=== PATIENT | male | born 1980 | race Hispanic/Latino ===

== ENCOUNTER 2024-08-29 15:17 | Emergency (ER) | payer SELFPAY ==
[2024-08-29] MEDS ORDERED: NA CHLORIDE 0.9% 1,000 ML ONE ×2 (15:44→18:11)
[2024-08-29] MEDS ORDERED: KETOROLAC 30 MG/ML INJ ONE (15:44)
[2024-08-29 15:56] LABS: Absolute Basophils 0.1 K/uL (0-0.5); Absolute Eosinophils 0.1 K/uL (0-0.5); Absolute Lymphocytes (CBC) 2.2 K/uL (0.7-4.9); Absolute Monocytes 0.9 K/uL (0.1-1.3); Absolute Neutrophil 9.6 K/uL (1.8-8.0); Basophils % 0.6 % (0-1.3); Eosinophils % 0.5 % (0-4.4); Hematocrit 46.2 % (39.6-49.0); Hemoglobin 15.4 g/dL (13.6-17.9); Lymphocytes % 17.3 % (15.3-44.8); MCH 30.6 pg (27.0-35.0); MCHC 33.3 g/dL (32.0-36.0); MCV 92.1 fL (80-100); MPV 7.6 fL (7.6-11.3); Monocytes % 6.9 % (3.3-12.3); Neutrophils % 74.7 % (41.7-73.7); Platelets 463 thou/uL (152-406); RBC Red Blood Cell Count 5.02 M/uL (4.33-5.43); Red Cell Distribution Width 13.2 % (12.1-15.2)
[2024-08-29 16:21] LABS: Albumin 4.6 g/dL (3.4-5.0); Albumin/Globulin Ratio 1.2 (1.1-1.8); Bilirubin Total 0.5 mg/dL (0.2-1.0); Globulin 3.9 g/dL (2.3-3.5); Protein, Total 8.5 g/dL (6.4-8.2)
[2024-08-29 17:55] LABS: Specific Gravity 1.021 (1.005-1.030); Sqamous Epithelial <5 /HPF (None Seen); Urine Bacteria <20 /HPF (<20); Urine Bilirubin NEGATIVE (Negative); Urine Blood Negative (Negative); Urine Clarity Extremely Turbid (Clear); Urine Color Yellow (Yellow); Urine Culture Reflex Order NOT NEEDED; Urine Glucose NEGATIVE (Negative); Urine Ketones TRACE (Negative); Urine Microscopic Reflex YN ORDER UMIC; Urine Mucus Slight /HPF (None Seen); Urine Nitrite NEGATIVE (Negative); Urine Protein 1+ (Negative); Urine RBC <5 /HPF (None Seen); Urine Urobilinogen Normal (Normal); Urine WBC <5 /HPF (<5)
[2024-08-29 18:05] LABS: Barbiturates NEGATIVE (NEGATIVE); Benzodiazepines NEGATIVE (NEGATIVE); Cocaine NEGATIVE (NEGATIVE); METHAMPHETAM POSITIVE (NEGATIVE); Methadone NEGATIVE (NEGATIVE); Opiates NEGATIVE (NEGATIVE); Phencyclidine NEGATIVE (NEGATIVE); THC Cannibis NEGATIVE (NEGATIVE)
--- NOTE | 2024-08-29 18:16 | RAD REPORT ---
EXAMINATION: CT ABDOMEN AND PELVIS WITHOUT CONTRAST CLINICAL INDICATION: Abdominal pain TECHNIQUE: CT abdomen and pelvis was performed, as per department protocol. IV contrast and oral was not administered.Axial, sagittal and coronal reconstructions were obtained. One or more of the following dose reduction techniques were used: Automated exposure control, adjustment of the mA and/o r kV according to the patient size, and/or iterative reconstruction. Unless otherwise specified, incidental findings do not require dedicated imaging follow-up. [id number]. COMPARISON: No prior exam. FINDINGS: The lack of intravenous and oral contrast limits evaluation of solid organs, vessels and bowel. The liver, spleen, pancreas, adrenals and kidneys appear grossly normal No evidence of diverticulitis Normal appendix. Small right inguinal hernia contains fat. Moderate umbilical hernia contains fat. Hernia sac 6.2 cm. The neck measures 2 cm. There is mild stra nding in the fat IMPRESSION: Moderate umbilical hernia. Stranding within the herniated fat may indicate strangulation
[2024-08-29] MEDS ORDERED: FENTANYL CITR 100 MCG/2 ML ONE (18:22)
--- NOTE | 2024-08-29 18:48 | ER ---
Nurse's Notes [facility] Name: Saturnino Padgett Age: 44 yrs Sex: Male : 1980 Arrival Date: 08/29/2024 Time: 15:17 Bed 16 Private MD: Diagnosis: Umbilical hernia without obstruction or gangrene Presentation: 08/29 15:25 Chief complaint: EMS states: hernia to lower abdomen grew larger and became extremely rs5 painful while working outside. 15:25 Coronavirus screen: At this time, the client does not indicate any symptoms associated rs5 with coronavirus-19. Ebola Screen: No symptoms or risks identified at this time. Initial Sepsis Screen: Does the patient meet any 2 criteria? HR > 90 bpm. Yes Does the patient have a suspected source of infection? No. Patient's initial sepsis screen is negative. Risk Assessment: Do you want to hurt yourself or someone else? Patient reports no desire to harm self or others. Onset of symptoms was August 29, 2024. 15:25 Method Of Arrival: EMS: [facility] rs5 15:25 Acuity: LEDA 3 rs5 Historical: - Allergies: 15:30 No Known Allergies; rs5 - PMHx: 15:30 Bipolar disorder; Hypertensive disorder; Kidney disease; rs5 - PSHx: 15:30 None; rs5 - Immunization history:: Adult Immunizations up to date. - Infectious Disease History:: Denies. - Social history:: Smoking status: Patient denies any tobacco usage or history of. Screenin:25 [facility] ED Fall Risk Assessment (Adult) History of falling in the last 3 months, rs5 including since admission No falls in past 3 months (0 pts) Confusion or Disorientation No (0 pts) Intoxicated or Sedated No (0 pts) Impaired Gait No (0 pts) Mobility Assist Device Used No (0 pt) Altered Elimination No (0 pt) Score/Fall Risk Level 0 - 2 = Low Risk Oriented to surroundings, Maintained a safe environment. Abuse screen: Denies threats or abuse. Nutritional screening: No deficits noted. Tuberculosis screening: No symptoms or risk factors identified. Assessment: 15:25 General: Appears in no apparent distress. uncomfortable, Behavior is calm, cooperative. rs5 Pain: Complains of pain in abdomen Pain currently is 6 out of 10 on a pain scale. Quality of pain is described as aching, Is continuous. Neuro: Level of Consciousness is awake, alert, obeys commands, Oriented to person, place, time, situation. Cardiovascular: Patient's skin is warm and dry. Respiratory: Airway is patent Respiratory effort is even, unlabored, Respiratory pattern is regular, symmetrical. GI: Abdomen is round non-distended, Abd is soft and non tender X 4 quads. : No signs and/or symptoms were reported regarding the genitourinary system. EENT: No signs and/or symptoms were reported regarding the EENT system. Derm: Skin is intact, Skin is pink, warm \T\ dry. Musculoskeletal: Range of motion: intact in all extremities. 16:38 Reassessment: Patient and/or family updated on plan of care and expected duration. Pain rs5 level reassessed. Patient is alert, oriented x 3, equal unlabored respirations, skin warm/dry/pink. 18:01 Reassessment: Patient and/or family updated on plan of care and expected duration. Pain rs5 level reassessed. Patient is alert, oriented x 3, equal unlabored respirations, skin warm/dry/pink. 18:58 Reassessment: Patient and/or family updated on plan of care and expected duration. Pain rs5 level reassessed. Patient is alert, oriented x 3, equal unlabored respirations, skin warm/dry/pink. Vital Signs: 15:25 BP 123 / 79; Pulse 109; Resp 17; Temp 98(O); Pulse Ox 99% on R/A; rs5 16:01 BP 122 / 79; Pulse 80; Resp 17; Pulse Ox 99% on R/A; rs5 18:17 BP 125 / 74; Pulse 101; Resp 17; Pulse Ox 99% on R/A; rs5 18:58 BP 130 / 77; Pulse 79; Resp 16; Pulse Ox 99% on R/A; rs5 19:22 BP 126 / 78; Pulse 75; Resp 16; Temp 98; Pulse Ox 100% on R/A; kj2 ED Course: 15:23 Patient arrived in ED. sb4 15:24 Debbie Jenkins PA-C is [facility]. sb4 15:24 Kenneth Sandoval MD is Attending Physician. sb4 15:25 Patient has correct armband on for positive identification. Placed in gown. Bed in low rs5 position. Call light in reach. Side rails up X2. 15:28 Kenny Cuenca, DALTON is Primary Nurse. rs5 15:30 Triage completed. rs5 15:30 No provider procedures requiring assistance completed. Inserted saline lock: 20 gauge rs5 in left antecubital area, using aseptic technique. Blood collected. Flushed with 10 mL NS. 18:03 CT Abd/Pelvis - Without Contrast In Process Unspecified. EDMS 18:48 Ata Faulkner MD is Referral Physician. sb4 19:05 Report received from DALTON Cox. kj2 19:21 Patient abdominal binder per MD order. kj2 19:21 Provided Education on: abdominal binder. kj2 19:21 IV discontinued, intact, bleeding controlled, No redness/swelling at site. Pressure kj2 dressing applied. Administered Medications: 15:52 Drug: NS 0.9% IV 1000 ml IV at 1 bolus Per protocol; to be given as a bolus over 60 rs5 minutes Route: IV; Rate: 1 bolus; Site: left antecubital; 15:52 Drug: Ketorolac IVP 15 mg IVP once Route: IVP; Site: left antecubital; rs5 16:10 Follow up: Response: No adverse reaction; Pain is decreased rs5 18:27 Drug: NS 0.9% IV 1000 ml IV at 1000 ml once; to be given as a bolus over 60 minutes rs5 Route: IV; Rate: 1000 ml; Site: left antecubital; 19:30 Follow up: IV Status: Completed infusion; IV Intake: 1000ml kj2 18:27 Drug: fentaNYL (PF) IVP 100 mcg IVP once Route: IVP; Site: left antecubital; rs5 18:59 Follow up: Response: No adverse reaction; Pain is decreased rs5 Medication: 18:19 VIS not applicable for this client. rs5 Intake: 19:30 IV: 1000ml; Total: 1000ml. kj2 Outcome: 18:48 Discharge ordered by MD. sb4 19:22 Discharged to home ambulatory, kj2 19:22 Condition: stable 19:22 Discharge instructions given to patient, Instructed on discharge instructions, follow up and referral plans. Demonstrated understanding of instructions, follow-up care, 19:31 Patient left the ED. kj2 Signatures: Dispatcher [employer] EDMS Debbie Jenkins PA-C PA-C sb4 Kenny Cuenca, RN RN rs5 Nga Calvillo, RN RN kj2
--- NOTE | 2024-08-29 18:49 | EDPHYS ---
Physician Documentation [facility] Name: Saturnino Padgett Age: 44 yrs Sex: Male : 1980 Arrival Date: 08/29/2024 Time: 15:17 Bed 16 Private MD: ED Physician Kenneth Sandoval HPI: 08/29 15:35 This 44 yrs old Male presents to ER via EMS with complaints of abdominal pain, back sb4 pain. 15:35 patient reports pain in umbilical hernia x 4 years, got worse today. also reports pain sb4 in his kidneys and wants to detox from alcohol, last drink, 7 hours ago. endorses nausea, no vomiting, diarrhea, or fever. Historical: - Allergies: 15:30 No Known Allergies; rs5 - PMHx: 15:30 Bipolar disorder; Hypertensive disorder; Kidney disease; rs5 - PSHx: 15:30 None; rs5 - Immunization history:: Adult Immunizations up to date. - Infectious Disease History:: Denies. - Social history:: Smoking status: Patient denies any tobacco usage or history of. ROS: 15:35 Constitutional: Negative for fever, chills, and weight loss, sb4 15:35 Abdomen/GI: Positive for abdominal pain, 15:35 Back: Positive for flank pain, 15:35 All other systems are negative, Exam: 15:37 Head/Face: Normocephalic, atraumatic. Eyes: Extra-ocular motions intact. Periorbital sb4 areas with no swelling, redness, or edema. ENT: Mucous membranes moist. Respiratory: No increased work of breathing, no retractions or nasal flaring. Skin: Warm, dry with normal turgor. Normal color with no rashes, no lesions, and no evidence of cellulitis. 15:37 Constitutional: The patient appears alert, awake, uncomfortable, 15:37 Abdomen/GI: Hernia: noted in the umbilical area, tenderness, that is moderate, bowel sounds are appreciated on auscultation, Vital Signs: 15:25 BP 123 / 79; Pulse 109; Resp 17; Temp 98(O); Pulse Ox 99% on R/A; rs5 16:01 BP 122 / 79; Pulse 80; Resp 17; Pulse Ox 99% on R/A; rs5 18:17 BP 125 / 74; Pulse 101; Resp 17; Pulse Ox 99% on R/A; rs5 18:58 BP 130 / 77; Pulse 79; Resp 16; Pulse Ox 99% on R/A; rs5 19:22 BP 126 / 78; Pulse 75; Resp 16; Temp 98; Pulse Ox 100% on R/A; kj2 MDM: 15:24 Medical Screening Exam initiated sb4 18:12 Data reviewed: vital signs, nurses notes, EMS record, lab test result(s), radiologic sb4 studies. 18:27 ED course: was able to manually reduce hernia, pain has improved, will discharge home sb4 with abdominal binder and surgical follow up. 18:28 Counseling: I had a detailed discussion with the patient and/or guardian regarding the sb4 historical points, exam findings, and any diagnostic results supporting the discharge/admit diagnosis, lab results, radiology results, the need for outpatient follow up, a general surgeon, to return to the emergency department if symptoms worsen or persist or if there are any questions or concerns that arise at home. 08/29 15:24 Order name: CBC with Diff; Complete Time: 16:05 sb4 08/29 15:24 Order name: CMP; Complete Time: 16:27 sb4 08/29 15:24 Order name: Lipase; Complete Time: 16:27 sb4 08/29 15:24 Order name: Urinalysis w/ reflexes; Complete Time: 17:56 sb4 08/29 15:24 Order name: ETOH Level; Complete Time: 18:26 sb4 08/29 15:24 Order name: UDS; Complete Time: 18:07 sb4 08/29 16:32 Order name: CT Abd/Pelvis - Without Contrast; Complete Time: 18:16 sb4 08/29 15:24 Order name: IV Saline Lock; Complete Time: 15:52 sb4 08/29 15:24 Order name: Labs collected and sent; Complete Time: 15:52 sb4 08/29 18:20 Order name: Ice pack; Complete Time: 18:59 sb4 08/29 18:21 Order name: Misc. Order: abdominal binder; Complete Time: 19:20 sb4 Administered Medications: 15:52 Drug: NS 0.9% IV 1000 ml IV at 1 bolus Per protocol; to be given as a bolus over 60 rs5 minutes Route: IV; Rate: 1 bolus; Site: left antecubital; 15:52 Drug: Ketorolac IVP 15 mg IVP once Route: IVP; Site: left antecubital; rs5 16:10 Follow up: Response: No adverse reaction; Pain is decreased rs5 18:27 Drug: NS 0.9% IV 1000 ml IV at 1000 ml once; to be given as a bolus over 60 minutes rs5 Route: IV; Rate: 1000 ml; Site: left antecubital; 19:30 Follow up: IV Status: Completed infusion; IV Intake: 1000ml kj2 18:27 Drug: fentaNYL (PF) IVP 100 mcg IVP once Route: IVP; Site: left antecubital; rs5 18:59 Follow up: Response: No adverse reaction; Pain is decreased rs5 Disposition Summary: 08/29/24 18:48 Discharge Ordered Notes: Location: Home sb4 Problem: new sb4 Symptoms: have improved sb4 Condition: Stable sb4 Diagnosis - Umbilical hernia without obstruction or gangrene sb4 Followup: sb4 - With: Ata Faulkner MD - When: 1 week - Reason: Recheck today's complaints, Re-evaluation by your physician Discharge Instructions: - Discharge Summary Sheet sb4 - Umbilical Hernia, Adult sb4 Forms: - Patient Portal Instructions sb4 - Leadership Thank You Letter sb4 Addendum: 09/02/2024 07:01 Co-signature as Attending Physician, Kenneth Sandoval MD I reviewed the patient's care r n provided by the Advanced Practice Provider and agree with the diagnosis and treatment plan. Signatures: Dispatcher [employer] Kenneth Avalos MD MD rn Brown, Sophia, PA-C PA-C sb4 Kenny Cuenca RN RN rs5 Nga Calvillo RN kj2 Corrections: (The following items were deleted from the chart) 08/29 16:35 16:09 Abdomen Pelvis W Con+CT.RAD.BRZ ordered. [facility] 18:27 15:37 Abdomen/GI: Hernia: noted in the umbilical area, tenderness, that is moderate, sb4 bowel sounds are appreciated on auscultation, sb4
[2024-08-29 19:42] VITALS: TEMP 98
[2024-08-29 20:00] VITALS: BP 126/78; O2SAT 100
== END 2024-08-29 19:31 | disposition home or self-care (01) ==
LOC: ER 15:17
DX: K42.9 Umbilical hernia without obstruction or gangrene (principal)
CPT/HCPCS: 36415; 74176; 80053; 80307; 81001; 82077; 83690; 85025; 96361; 96374; 96375; 99284; J3010; J7030